=== PATIENT | female | born 1960 | race Hispanic/Latino ===

== ENCOUNTER → 2017-04-29 | Outpatient (CLI) | payer OTHER ==
--- NOTE | 2017-04-29 18:30 | Diagnostic Imaging Report ---
PROCEDURE:X-RAY RIGHT KNEE, THREE OR MORE VIEWS COMPARISON:None. INDICATIONS:CONSTANT PAIN FINDINGS: The bones are well-mineralized. There are no fractures, subluxations, lytic or blastic lesions. Mild degenerative changes in the medial and patellofemoral compartments with small suprapatellar joint effusion. CONCLUSION: Mild degenerative changes in the right knee. Dictated by: Lloyd Harvey M.D. on 04/29/2017 at 18:40 Electronically approved by: Lloyd Harvey M.D. on 04/29/2017 at 18:40
== END ==
LOC: RAD 17:08
PROVIDERS: ATTEND Internal Medicine Endocrinology, Diabetes & Metabolism
DX: M25.561 Pain in right knee (principal)

== ENCOUNTER → 2017-09-08 | Outpatient (CLI) | payer OTHER ==
[~2017-09-08] MED LIST: IOPAMIDOL 370 MG/ML 200 ML INFUS..BTL INJ ONE; SODIUM CHLORIDE 0.9% 50ML 50 ML ONE
[2017-09-08 18:37] LABS: BLOOD UREA NITROGEN 10 mg/dL (7-26); BUN/CREATININE RATIO 13 (6-25); CREATININE, SERUM 0.79 mg/dL (0.57-1.11); EST GLOMERULAR FILTRATION RATE > 60 ML/MIN (60-)
--- NOTE | 2017-09-08 19:32 | Diagnostic Imaging Report ---
CTA CHEST WITH CONTRAST HISTORY: Dilated taylor ascending aorta, query aneurysm COMPARISON: None available TECHNIQUE: CT scan of the chest WITH intravenous contrast, using standard protocol. Coronal and sagittal reformats are provided. IV CONTRAST: 100 cc of Isovue-[id number]. RADIATION DOSE: Total DLP: 457.64 mGy*cm COMPLICATIONS: None FINDINGS: Beam hardening artifact related to dictation limits the regional evaluation. Lines/tubes: None. Lungs and Airways: Low lung volumes result in bibasilar vascular crowding, accentuation of the pulmonary interstitial markings, central pulmonary vasculature, and the cardiac silhouette. Allowing for these limitations, the findings are as follows: No pneumonia or pulmonary edema. Pleura: The pleural spaces are clear. Heart and mediastinum: The thyroid gland is normal. The heart and pericardium are within normal limits. Abdomen: Limited evaluation of the upper abdomen. Diffusely decreased attenuation of the liver versus the spleen, compatible with hepatic steatosis. Lymph nodes: No pathologically enlarged lymph node identified. Vessels: Aorta and proximal branches: The thoracic aorta is markedly tortuous. No evidence of dissection. No evidence of intramural or periaortic hematoma. There is preservation of the sinotubular junction. The innominate, proximal subclavian, and common carotid arteries are normal in branching order and size. Measurements of the aorta are as follows: 3.4 cm at the level of the aortic root, 3.6 cm in the mid ascending aorta, 2.4 cm in the mid aortic arch, 3 cm in the proximal descending aorta, 2.8 cm in the mid descending aorta, 2.7 cm at the level of the diaphragmatic hiatus Bones: No acute osseous lesion is identified. Minimal multilevel degenerative changes. Soft tissues: Unremarkable IMPRESSION: 1. Markedly tortuous thoracic aorta, without aneurysmal dilation. 2. Incidentally noted, hepatic steatosis. Signed by: Dr. Andrade Bridges D.O., M.M.M. on 09/08/2017 7:28 PM
== END ==
LOC: CT 17:59
PROVIDERS: ATTEND Internal Medicine Cardiovascular Disease
DX: I77.1 Stricture of artery (principal); I77.810 Thoracic aortic ectasia
CPT/HCPCS: 36415; 71275; 82565; 84520; Q9967